=== PATIENT | male | born 1990 | race Caucasian/White ===

== ENCOUNTER 2021-11-17 12:34 | Inpatient (IN) | payer BC, MEDICAID ==
[~2021-11-17] VITALS: Ht 182.9 cm; Wt 80.7 kg
[2021-11-17 13:17] LABS: HEMATOCRIT 46.5 % (42.0-52.0); HEMOGLOBIN 15.6 g/dl (13.5-17.5); MEAN CORPUSCULAR HEMOGLOBIN 29.9 pg (27.0-33.0); MEAN CORPUSCULAR HGB CONC 33.5 g/dl (32.0-36.5); MEAN CORPUSCULAR VOLUME 89.3 fl (80.0-96.0); PLATELET COUNT, AUTOMATED 191 10^3/uL (150-450); RED BLOOD COUNT 5.21 10^6/uL (4.30-6.10)
[2021-11-17 13:53] LABS: ACETAMINOPHEN LEVEL < 2.0 UG/ML (10.0-30.0); ALBUMIN 4.3 GM/DL (3.2-5.2); ALT/SGPT 32 U/L (12-78); BILIRUBIN,DIRECT 0.2 MG/DL (0.0-0.2); BILIRUBIN,TOTAL 0.6 MG/DL (0.2-1.0); BLOOD UREA NITROGEN 12 MG/DL (7-18); CALCIUM LEVEL 9.3 MG/DL (8.5-10.1); CARBON DIOXIDE LEVEL 24 MEQ/L (21-32); CHLORIDE LEVEL 110 MEQ/L (98-107); CREATININE FOR GFR 1.06 MG/DL (0.70-1.30); ETHYL ALCOHOL (ETHANOL) < 0.003 % (0.000-0.010); GLOMERULAR FILTRATION RATE > 60.0 (>60); GLUCOSE, FASTING 107 MG/DL (70-100); SALICYLATE LEVEL 2.7 MG/DL (5.0-30.0); SODIUM LEVEL 143 MEQ/L (136-145); THYROID STIMULATING HORMONE 0.643 uIU/ML (0.358-3.740); TOTAL PROTEIN 7.5 GM/DL (6.4-8.2)
[2021-11-17 14:23] LABS: AMPHETAMINES LEVEL URINE NEGATIVE (NEGATIVE); BARBITURATES URINE NEGATIVE (NEGATIVE); BENZODIAZEPINES URINE NEGATIVE (NEGATIVE); CANNABINOIDS URINE POSITIVE (NEGATIVE); COCAINE METABOLITE URINE NEGATIVE (NEGATIVE); METHADONE URINE NEGATIVE (NEGATIVE); OPIATES URINE NEGATIVE (NEGATIVE); PHENCYCLIDINE URINE NEGATIVE (NEGATIVE)
[2021-11-17] MEDS ORDERED: LORazepam 2 MG TAB PO STA (16:02)
[2021-11-17] MEDS ORDERED: NICOTINE 21MG/24HR 1 EA TRANSDERMAL TD ONE (16:05)
[2021-11-17] MEDS ORDERED: LAMO25TA4 PO (18:46)
[2021-11-17] MEDS ORDERED: FLUO20CA22 PO (18:46)
[2021-11-17] MEDS ORDERED: HOME MED LIST COMPLETE! XX SCH (18:50)
[2021-11-17] MEDS ORDERED: lamoTRIgine 25MG TAB PO ONE (21:00)
[2021-11-18] MEDS: FLUoxetine 20 MG CAP PO ONE ×2 (09:11→09:13)
[2021-11-18] MEDS ORDERED: LORazepam 2 MG TAB PO ONE ×2 (09:15→15:30)
[2021-11-18] MEDS ORDERED: LORazepam 2 MG TAB PO STA (22:14)
[2021-11-19] MEDS ORDERED: LORazepam 2 MG TAB PO STA (08:17)
[2021-11-19] MEDS: lamoTRIgine 25MG TAB PO SCH ×2 (09:00→21:00)
[2021-11-19] MEDS: FLUoxetine 20 MG CAP PO SCH (09:00)
[2021-11-19] MEDS ORDERED: NICOTINE 21MG/24HR 1 EA TRANSDERMAL TD SCH (09:00)
[2021-11-19] MEDS ORDERED: MAALOX 30 ML SUSP *UDC PO PRN (13:05)
[2021-11-19] MEDS ORDERED: MOM 30ML SUSPENSION UDC PO PRN (13:05)
[2021-11-19] MEDS ORDERED: ACETAMINOPHEN TAB 650MG DOSE (2X325MG) PO PRN (13:05)
[2021-11-19 14:57] VITALS: BP 132/93
[2021-11-19] MEDS: OLANZapine 2.5MG TABLET PO PRN (15:23)
[2021-11-19] MEDS: traZODone 50 MG TAB PO PRN (20:55)
[2021-11-20 06:22] VITALS: BP 114/72
[2021-11-20] MEDS: FLUoxetine 20 MG CAP PO SCH (08:32)
[2021-11-20] MEDS: lamoTRIgine 25MG TAB PO SCH (08:32)
[2021-11-20] MEDS: NICOTINE 21MG/24HR 1 EA TRANSDERMAL TD SCH (09:29)
[2021-11-20] MEDS: OLANZapine 2.5MG TABLET PO PRN (09:39)
[2021-11-20 16:05] VITALS: BP 144/70
[2021-11-20] MEDS: hydrOXYzine 50 MG TAB PO PRN (18:49)
[2021-11-20] MEDS ORDERED: IBUPROFEN 400MG TAB PO PRN (20:00)
[2021-11-20] MEDS ORDERED: OLANZapine 5 MG TAB PO SCH (21:00)
[2021-11-20] MEDS: traZODone 50 MG TAB PO PRN (21:43)
[2021-11-21 07:34] LABS: CHOLESTEROL RISK RATIO 3.369 (<5)
[2021-11-21] MEDS: NICOTINE 21MG/24HR 1 EA TRANSDERMAL TD SCH (08:31)
[2021-11-21] MEDS: OLANZapine ORAL DISINTEGRATING TAB 5MG PO PRN (08:38)
[2021-11-21] MEDS ORDERED: BENZTROPINE 0.5 MG TAB PO ONE (09:55)
[2021-11-21] MEDS ORDERED: BENZTROPINE 0.5 MG TAB PO PRN (10:20)
[2021-11-21] MEDS: OLANZapine 5 MG TAB PO SCH ×2 (10:24→21:26)
[2021-11-21 16:15] VITALS: BP 140/63
[2021-11-21] MEDS: traZODone 50 MG TAB PO PRN (21:26)
[2021-11-22 06:37] VITALS: BP 132/63
[2021-11-22] MEDS: OLANZapine 5 MG TAB PO SCH ×2 (08:28→21:00)
[2021-11-22] MEDS: NICOTINE 21MG/24HR 1 EA TRANSDERMAL TD SCH (08:28)
[2021-11-22 18:15] VITALS: BP 146/80
[2021-11-22] MEDS: OLANZapine ORAL DISINTEGRATING TAB 5MG PO PRN (19:54)
[2021-11-22] MEDS: traZODone 50 MG TAB PO PRN (21:00)
[2021-11-23 06:41] VITALS: BP 136/61
[2021-11-23] MEDS: OLANZapine 5 MG TAB PO SCH ×2 (08:38→20:40)
[2021-11-23] MEDS: NICOTINE 21MG/24HR 1 EA TRANSDERMAL TD SCH (08:38)
[2021-11-23 16:24] VITALS: BP 136/69
[2021-11-23] MEDS: traZODone 50 MG TAB PO PRN (20:40)
[2021-11-24] MEDS: OLANZapine 5 MG TAB PO SCH ×2 (09:06→19:27)
[2021-11-24] MEDS: NICOTINE 21MG/24HR 1 EA TRANSDERMAL TD SCH (09:06)
[2021-11-24 15:58] VITALS: BP 115/60
[2021-11-24] MEDS: hydrOXYzine 50 MG TAB PO PRN (19:26)
[2021-11-24] MEDS: traZODone 50 MG TAB PO PRN (21:32)
[2021-11-25 06:31] VITALS: BP 140/80
[2021-11-25] MEDS: OLANZapine 5 MG TAB PO SCH ×2 (08:09→21:49)
[2021-11-25] MEDS: NICOTINE 21MG/24HR 1 EA TRANSDERMAL TD SCH (08:10)
[2021-11-25 16:31] VITALS: BP 137/72
[2021-11-25] MEDS: traZODone 50 MG TAB PO PRN (21:49)
[2021-11-26 06:58] VITALS: BP 119/60
[2021-11-26] MEDS ORDERED: HYDR50TA70 PO (07:49)
[2021-11-26] MEDS ORDERED: TRAZ-252 PO (07:49)
[2021-11-26] MEDS ORDERED: OLAN1TAB16 PO (07:49)
[2021-11-26] MEDS ORDERED: BENZ0.5T23 PO (07:49)
[2021-11-26] MEDS: OLANZapine 5 MG TAB PO SCH (08:07)
[2021-11-26] MEDS: NICOTINE 21MG/24HR 1 EA TRANSDERMAL TD SCH (08:07)
== END 2021-11-26 10:36 | disposition home or self-care (01) | DRG 753 ==
LOC: M ED 12:34 → M ED INP 11-19 13:01 → M PSY 11-19 13:45
PROVIDERS: ADMIT Student in an Organized Health Care Education/Training Program; ATTEND Psychiatry & Neurology Psychiatry
DX: F31.9 Bipolar disorder, unspecified (principal); F41.9 Anxiety disorder, unspecified; F12.10 Cannabis abuse, uncomplicated; F10.10 Alcohol abuse, uncomplicated; F63.81 Intermittent explosive disorder; F17.200 Nicotine dependence, unspecified, uncomplicated; M79.641 Pain in right hand; M79.89 Other specified soft tissue disorders; Z63.0 Problems in relationship with spouse or partner; Z62.810 Personal history of physical and sexual abuse in childhood; Z62.811 Personal history of psychological abuse in childhood; Z79.899 Other long term (current) drug therapy; Z91.51 Personal history of suicidal behavior; Z88.0 Allergy status to penicillin; Z81.8 Family history of other mental and behavioral disorders; Z88.8 Allergy status to other drugs, medicaments and biological substances

== ENCOUNTER → 2023-09-02 | Day surgery (SDC) | payer BC, MEDICAID ==
[~2023-09-02] VITALS: Ht 182.9 cm; Wt 75.7 kg
[~2023-09-02] MED LIST: BENZ0.5T2 PO; FLUO20CA22 PO; HYDR50TA70 PO; LAMO25TA4 PO; LIDOCAINE 2% 100MG/5ML SDV (FOR ANES.) As Ordered ONE; NS 1,000 ML IV ONE; OLAN1TAB16 PO; PANT40TA29 PO; TRAZ-252 PO; ZIPR40CA11 PO; fentaNYL 100 MCG/2 ML INJECTION As Ordered ONE; propofoL 500 MG/50 ML VIAL As Ordered ONE
[2023-09-02 12:13] VITALS: TEMP 96.7
[2023-09-02 12:45] VITALS: BP 101/64; O2SAT 100
== END | disposition home or self-care (01) ==
LOC: M OPP 10:00
PROVIDERS: ATTEND Internal Medicine Gastroenterology
DX: K29.70 Gastritis, unspecified, without bleeding (principal); B96.81 Helicobacter pylori [H. pylori] as the cause of diseases classified elsewhere; K22.89 Other specified disease of esophagus; R63.4 Abnormal weight loss; K64.8 Other hemorrhoids; K57.30 Diverticulosis of large intestine without perforation or abscess without bleeding; R19.4 Change in bowel habit; K21.9 Gastro-esophageal reflux disease without esophagitis; Z79.899 Other long term (current) drug therapy; Z88.0 Allergy status to penicillin; Z88.8 Allergy status to other drugs, medicaments and biological substances; Z88.1 Allergy status to other antibiotic agents
CPT/HCPCS: 88305; J3010

== ENCOUNTER 2025-05-14 03:20 | Emergency (ER) | payer MEDICAID, SELFPAY ==
[~2025-05-14] VITALS: Ht 175.3 cm; Wt 83.6 kg
[~2025-05-14 03:20] MED LIST changes: +FLUO-365 PO; -FLUO20CA22 PO; +LAMO-18 PO; -LAMO25TA4 PO; -LIDOCAINE 2% 100MG/5ML SDV (FOR ANES.) As Ordered ONE; -NS 1,000 ML IV ONE; -ZIPR40CA11 PO; +ZIPR40CA21 PO; -fentaNYL 100 MCG/2 ML INJECTION As Ordered ONE; -propofoL 500 MG/50 ML VIAL As Ordered ONE
[2025-05-14 04:20] LABS: PLATELET COUNT, AUTOMATED 164 10^3/uL (150-450)
[2025-05-14 04:43] LABS: ETHYL ALCOHOL (ETHANOL) 0.018 % (0.000-0.010)
[2025-05-14 04:44] LABS: SALICYLATE LEVEL < 3.0 MG/DL (<30)
[2025-05-14 04:45] LABS: ALT/SGPT 48 U/L (7.0-40); AST/SGOT 68 U/L (<34); CALCIUM LEVEL 8.6 MG/DL (8.5-10.1); CARBON DIOXIDE LEVEL 24 MMOL/L (20-31); CHLORIDE LEVEL 105 MMOL/L (98-107); CREATININE FOR GFR 0.98 MG/DL (0.70-1.30); GLOMERULAR FILTRATION RATE > 90.0 (>60); POTASSIUM SERUM 3.9 MMOL/L (3.5-5.1); SODIUM LEVEL 143 MMOL/L (136-145)
[2025-05-14] MEDS: THIAMINE 100 MG TAB PO SCH (09:00)
[2025-05-14] MEDS: MULTIVITAMINS/MINERALS THERAP 1 TAB PO SCH (09:00)
[2025-05-14] MEDS: FOLIC ACID 1 MG TAB PO SCH (09:00)
[2025-05-14 12:32] LABS: BARBITURATES URINE NEGATIVE (NEGATIVE); BENZODIAZEPINES URINE NEGATIVE (NEGATIVE); COCAINE METABOLITE URINE NEGATIVE (NEGATIVE); METHADONE URINE NEGATIVE (NEGATIVE); PHENCYCLIDINE URINE NEGATIVE (NEGATIVE)
[2025-05-14 12:38] LABS: AMPHETAMINES LEVEL URINE POSITIVE (NEGATIVE); CANNABINOIDS URINE POSITIVE (NEGATIVE); OPIATES URINE POSITIVE (NEGATIVE)
[2025-05-14 15:10] VITALS: BP 115/74; TEMP 98; O2SAT 98
== END 2025-05-14 15:11 | disposition home or self-care (01) ==
LOC: M ED 03:20
DX: F41.1 Generalized anxiety disorder (principal); F32.A Depression, unspecified; F17.210 Nicotine dependence, cigarettes, uncomplicated; F12.10 Cannabis abuse, uncomplicated; F10.10 Alcohol abuse, uncomplicated; Z88.0 Allergy status to penicillin; Z88.8 Allergy status to other drugs, medicaments and biological substances; Z79.899 Other long term (current) drug therapy